=== PATIENT | female | born 1960 | race Caucasian/White ===

== ENCOUNTER 2017-03-05 13:02 | Observation (INO) | payer OTHER ==
[~2017-03-05] VITALS: Ht 172.7 cm; Wt 98.7 kg
[2017-03-05] MEDS ORDERED: CHLO4 PO (13:27)
[2017-03-05] MEDS ORDERED: IBUP600 PO (13:28)
[2017-03-05] MEDS ORDERED: ACET325 PO (13:29)
[2017-03-05 13:44] LABS: BASOPHILS ABSOLUTE AUTO 0.02 K/mm3 (0.00-0.23); BASOPHILS PERCENT AUTO 0 % (0-2); EOSINOPHILS PERCENT AUTO 4 % (0-6); Hematocrit 43.3 % (33.0-51.0); Hemoglobin 14.8 g/dL (11.5-16.0); IMMATURE GRAN ABSOLUTE AUTO 0.01 K/mm3 (0.00-0.10); IMMATURE GRAN PERCENT AUTO 0 % (0-1); LYMPHOCYTES ABSOLUTE AUTO 2.75 K/mm3 (0.84-5.20); LYMPHOCYTES PERCENT AUTO 39 % (21-46); MONOCYTES ABSOLUTE AUTO 0.84 K/mm3 (0.16-1.47); MONOCYTES PERCENT AUTO 12 % (4-13); Mean Corpuscular HGB Conc 34.2 g/dL (31.5-36.5); Mean Corpuscular Volume 94 fL (80-100); Mean Platelet Volume 9.6 fL (9.1-12.4); NEUTROPHILS ABSOLUTE AUTO 3.12 K/mm3 (1.96-9.15); NEUTROPHILS PERCENT AUTO 44 % (41-73); Platelet Count 202 K/mm3 (150-400); RDW Coefficient Variation 12.8 % (11.7-14.2); RDW Standard Deviation 43.9 fL (35.1-46.3); Red Blood Cell Count 4.62 M/mm3 (3.80-5.20); White Blood Cell Count 7.04 K/mm3 (4.00-11.30)
[2017-03-05 14:08] LABS: Alanine Aminotransfer (ALT/SGP 47 U/L (12-78); Albumin, Blood 3.7 g/dL (3.4-5.0); Albumin/Globulin Ratio 1.2 (0.8-1.8); Alk Phos 80 U/L (50-136); Anion Gap 6 mmol/L (6-16); Aspartate Aminotrans (AST/SGOT 25 U/L (12-37); Bilirubin, Total 0.2 mg/dL (0.1-1.0); Blood Urea Nitrogen 13 mg/dL (8-24); Bun/Creatinine Ratio 18.4 (12.0-20.0); CO2, Blood 29 mmol/L (21-32); Calcium, Blood 8.8 mg/dL (8.5-10.1); Chloride, Blood 107 mmol/L (98-108); Creatinine, Blood 0.71 mg/dL (0.40-1.00); Ethanol (Alcohol), Blood, Med <3 mg/dL; Globulin, Blood 3.1 g/dL (2.2-4.0); Glomerular Filtration Rate >60 (60-); Glucose, Blood 119 mg/dL (70-99); Potassium, Blood 3.7 mmol/L (3.5-5.5); Sodium, Blood 142 mmol/L (136-145); Total Protein, Blood 6.8 g/dL (6.4-8.2)
[2017-03-05 14:11] LABS: International Normalized Ratio 0.97; Prothrombin Time Results 10.1 Sec (9.7-11.5)
[2017-03-05 18:48] LABS: U Amphetamine Screen Not Detected; U Barbituate Screen Not Detected; U Benzodiazapine Screen Not Detected; U Buprenorphine Screen Not Detected; U Cannabinoids Screen Not Detected; U Cocaine Screen Not Detected; U Methadone Screen Not Detected; U Methamphetamine Screen Not Detected; U Opiates Screen Not Detected; U Oxycodone Screen Not Detected; U Phencyclidine Screen Not Detected; U Propoxyphene Screen Not Detected
[2017-03-06 05:38] LABS: Hematocrit 41.9 % (33.0-51.0); Mean Corpuscular HGB 31.5 pg (26.0-34.0); Mean Corpuscular HGB Conc 33.4 g/dL (31.5-36.5); Mean Corpuscular Volume 94 fL (80-100); Mean Platelet Volume 9.7 fL (9.1-12.4); Platelet Count 182 K/mm3 (150-400); RDW Coefficient Variation 12.8 % (11.7-14.2); RDW Standard Deviation 43.8 fL (35.1-46.3); Red Blood Cell Count 4.45 M/mm3 (3.80-5.20); White Blood Cell Count 6.36 K/mm3 (4.00-11.30)
[2017-03-06 06:07] LABS: Anion Gap 6 mmol/L (6-16); Blood Urea Nitrogen 16 mg/dL (8-24); CO2, Blood 28 mmol/L (21-32); Calcium, Blood 8.7 mg/dL (8.5-10.1); Chloride, Blood 107 mmol/L (98-108); Cholesterol 213 mg/dL (50-200); Creatinine, Blood 0.64 mg/dL (0.40-1.00); Glomerular Filtration Rate >60 (60-); Glucose, Blood 102 mg/dL (70-99); Potassium, Blood 3.9 mmol/L (3.5-5.5); Sodium, Blood 141 mmol/L (136-145); Triglycerides 254 mg/dL (30-160); Very Low Density Lipoprot Chol 50 mg/dL (6-32)
[2017-03-06 06:08] LABS: CHOL/HDL RATIO 5.1; HDL Cholesterol 42 mg/dL (>39); LDL/HDL RATIO 2.9; Low Density Lipoprotein Chol 120 mg/dL (0-110)
[2017-03-07] MEDS ORDERED: Aspirin EC81 MG PO (09:00)
[2017-03-07] MEDS ORDERED: SIMV40 PO (09:05)
[2017-03-07] MEDS ORDERED: Nicotine Patch1 EAC5 TOP (09:05)
[2017-03-07] MEDS ORDERED: CLOP75 PO (09:06)
[2017-08-02] MEDS ORDERED: MECL12.5 PO (10:51)
[2017-08-02] MEDS ORDERED: CITA20 PO (10:51)
[2017-08-02] MEDS ORDERED: MELA3 (10:51)
== END 2017-03-07 10:33 | disposition home or self-care (01) ==
LOC: ER 13:02 → MEDS 18:03 → ENPENDDIS 03-07 08:30 → MEDS 03-07 10:33
PROVIDERS: Internal Medicine; Physician Assistant
DX: G45.9 Transient cerebral ischemic attack, unspecified (principal); E11.9 Type 2 diabetes mellitus without complications; I10 Essential (primary) hypertension; F17.210 Nicotine dependence, cigarettes, uncomplicated; Z90.89 Acquired absence of other organs; Z90.49 Acquired absence of other specified parts of digestive tract; Z88.8 Allergy status to other drugs, medicaments and biological substances; Z98.890 Other specified postprocedural states
CPT/HCPCS: 36415; 70450; 70496; 70498; 70551; 80048; 80053; 80061; 82947; 83036; 85025; 85027; 85610; 93005; 93010; 93306; 96125; 97110; 97161; 97165; 99285; 99406; G0378; G0480; G8978; G8979; G8980; G8987; G8988; G8989; G9174; G9175; G9176; Q9967

== ENCOUNTER → 2017-07-11 | Outpatient (CLI) | payer OTHER ==
[~2017-07-11] MED LIST: ACET325 PO; Aspirin EC81 MG PO; CHLO4 PO; CLOP75 PO; IBUP600 PO; Nicotine Patch1 EAC5 TOP; SIMV40 PO
== END ==
LOC: LAB UCHC 11:40 → LAB SHORT 11:40
DX: K52.9 Noninfective gastroenteritis and colitis, unspecified (principal)
CPT/HCPCS: 87015; 87045; 87046; 87177; 87205; 87209; 87338; 87899

== ENCOUNTER 2017-08-05 07:48 | Day surgery (SDC) | payer OTHER ==
[~2017-08-05] VITALS: Ht 170.2 cm; Wt 100.8 kg
[~2017-08-05 07:48] MED LIST changes: +CITA20 PO; +MECL12.5 PO; +MELA3
== END 2017-08-05 22:38 | disposition home or self-care (01) ==
LOC: MHTC 07:48
PROC: B246ZZ4 Ultrasonography of Right and Left Heart, Transesophageal (ICD-10-PCS; principal; 2017-08-05)
DX: G45.9 Transient cerebral ischemic attack, unspecified (principal); Z86.73 Personal history of transient ischemic attack (TIA), and cerebral infarction without residual deficits; E78.5 Hyperlipidemia, unspecified; Z87.891 Personal history of nicotine dependence; E66.9 Obesity, unspecified
CPT/HCPCS: 93312; 93325; J7120

== ENCOUNTER 2018-09-21 11:44 | Emergency (ER) | payer OTHER ==
[~2018-09-21] VITALS: Ht 172.7 cm; Wt 95.2 kg
[2018-09-21] MEDS ORDERED: Prinivil10 MG (12:07)
== END 2018-09-21 13:50 | disposition home or self-care (01) ==
LOC: ER 11:44
DX: I83.92 Asymptomatic varicose veins of left lower extremity (principal); Z88.8 Allergy status to other drugs, medicaments and biological substances; Z79.899 Other long term (current) drug therapy; Z87.891 Personal history of nicotine dependence
CPT/HCPCS: 82947; 99283

== ENCOUNTER 2022-03-25 14:35 | Emergency (ER) | payer OTHER ==
[~2022-03-25] VITALS: Ht 170.2 cm; Wt 68.0 kg
[~2022-03-25 14:35] MED LIST changes: +Prinivil10 MG
[2022-03-25 15:36] LABS: BASOPHILS ABSOLUTE AUTO 0.02 K/mm3 (0.00-0.23); BASOPHILS PERCENT AUTO 0 % (0-2); EOSINOPHILS ABSOLUTE AUTO 0.08 K/mm3 (0.00-0.68); EOSINOPHILS PERCENT AUTO 1 % (0-6); Hematocrit 42.8 % (33.0-51.0); Hemoglobin 14.7 g/dL (11.5-16.0); IMMATURE GRAN ABSOLUTE AUTO 0.03 K/mm3 (0.00-0.10); IMMATURE GRAN PERCENT AUTO 0 % (0-1); LYMPHOCYTES ABSOLUTE AUTO 2.08 K/mm3 (0.84-5.20); LYMPHOCYTES PERCENT AUTO 25 % (21-46); MONOCYTES ABSOLUTE AUTO 0.78 K/mm3 (0.16-1.47); MONOCYTES PERCENT AUTO 9 % (4-13); Mean Corpuscular HGB Conc 34.3 g/dL (31.5-36.5); Mean Corpuscular Volume 93 fL (80-100); Mean Platelet Volume 9.3 fL (9.1-12.4); NEUTROPHILS ABSOLUTE AUTO 5.28 K/mm3 (1.96-9.15); NEUTROPHILS PERCENT AUTO 64 % (41-73); Platelet Count 219 K/mm3 (150-400); RDW Coefficient Variation 12.1 % (11.7-14.2); RDW Standard Deviation 41.4 fL (35.1-46.3); White Blood Cell Count 8.27 K/mm3 (4.00-11.30)
[2022-03-25 15:58] LABS: Albumin, Blood 3.8 g/dL (3.4-5.0); Albumin/Globulin Ratio 1.1 (0.8-1.8); Bilirubin, Total 0.2 mg/dL (0.1-1.0); Bun/Creatinine Ratio 13.3 (12.0-20.0); Calcium, Blood 9.3 mg/dL (8.5-10.1); Creatinine, Blood 0.83 mg/dL (0.40-1.00); Globulin, Blood 3.4 g/dL (2.2-4.0); Potassium, Blood 3.8 mmol/L (3.5-5.5); Total Protein, Blood 7.2 g/dL (6.4-8.2)
== END 2022-03-25 18:42 | disposition home or self-care (01) ==
LOC: ER 14:35
PROVIDERS: Student in an Organized Health Care Education/Training Program
DX: R51.9 Headache, unspecified (principal); R47.9 Unspecified speech disturbances; Z79.899 Other long term (current) drug therapy; Z88.8 Allergy status to other drugs, medicaments and biological substances; Z87.891 Personal history of nicotine dependence
CPT/HCPCS: 36415; 70450; 70551; 71046; 80053; 82947; 85025

== ENCOUNTER → 2022-11-19 | Outpatient (CLI) | payer OTHER ==
[2022-11-22 07:12] LABS: COTININE Negative ng/mL (Cutoff=300)
== END | disposition home or self-care (01) ==
LOC: LAB 13:49 → LAB SHORT 13:49
PROVIDERS: Family Medicine
DX: F17.200 Nicotine dependence, unspecified, uncomplicated (principal)

== ENCOUNTER → 2023-08-28 | Outpatient (CLI) | payer OTHER ==
[2023-08-28 15:55] LABS: Phosphorus, Urine 72.8 mg/dL (20.0-60.0); Urine Magnesium 6.5 mg/dL
[2023-08-28 15:56] LABS: Microalbumin, Urine Quant. 8.16 mg/L (0.000-20.000); Uric Acid, Urine 36.3 mg/dL (7.5-49.5)
[2023-08-28 16:08] LABS: Calcium, Urine 19.8 mg/dL (< 17.5); Calcium, Urine Calculation 217.8 mg/24hrs (42.0-353.0)
[2023-09-02 14:45] LABS: CALCIUM, URINE - PER 24H 220 mg/d (100-250); CHLORIDE, URINE - PER 24H 139 mmol/d (140-250); CHLORIDE, URINE - PER VOLUME 126 mmol/L; CITRIC ACID, URINE - PER 24H 460 mg/d (320-1240); CITRIC ACID,URINE - PER VOLUME 418 mg/L; CREATININE, URINE - PER 24H 1155 mg/d (500-1400); CREATININE, URINE - PER VOLUME 105 mg/dL; HOURS COLLECTED 24 hr; MAGNESIUM, URINE PER 24H 66 mg/d (12-199); OXALATE, URINE - PER 24H 23 mg/d (13-40); OXALATE, URINE - PER VOLUME 21 mg/L; PH, URINE 5.61 (5.00-7.50); PHOSPHORUS, URINE - PER 24H 770 mg/d (400-1300); PHOSPHORUS, URINE - PER VOLUME 70 mg/dL; POTASSIUM, URINE - PER 24H 41 mmol/d (25-125); POTASSIUM, URINE - PER VOLUME 37 mmol/L; SODIUM, URINE - PER 24H 135 mmol/d (51-286); SODIUM, URINE - PER VOLUME 123 mmol/L; SULFATE, URINE - PER 24H < 5 mmol/d (6-30); SULFATE, URINE - PER VOLUME <5 mmol/L; TOTAL VOLUME 1100 mL; URIC ACID, URINE - PER 24H 371 mg/d (250-750); URIC ACID, URINE - PER VOLUME 33.7 mg/dL; URINE SUPERSATURATION INTERP Abnormal; URINE SUPERSATURATION, CAHPO4 1.88
== END | disposition home or self-care (01) ==
LOC: LAB 09:20 → LAB SHORT 09:20
PROVIDERS: Nurse Practitioner Family
DX: R10.9 Unspecified abdominal pain (principal)
CPT/HCPCS: 81003; 81050; 82043; 82131; 82140; 82150; 82340; 82436; 82507; 82570; 83735; 83935; 83945; 84105; 84133; 84300; 84392; 84540; 84560

== ENCOUNTER → 2023-11-06 | Outpatient (CLI) | payer OTHER ==
[2023-11-06 20:32] LABS: Creatinine Urine 77.1 mg/dL (27.00-270.00); Microalbumin, Urine Quant. 5.19 mg/L (0.000-20.000); Protein, Urine Quantitative 10.5 mg/dL (0.0-11.9)
== END | disposition home or self-care (01) ==
LOC: LAB 17:26 → LAB SHORT 17:26 → LAB FUT 10-31 11:25
PROVIDERS: Internal Medicine Nephrology
DX: N18.1 Chronic kidney disease, stage 1 (principal); D63.1 Anemia in chronic kidney disease; N25.81 Secondary hyperparathyroidism of renal origin; E55.9 Vitamin D deficiency, unspecified; E78.00 Pure hypercholesterolemia, unspecified; D51.8 Other vitamin B12 deficiency anemias; D52.8 Other folate deficiency anemias; D50.9 Iron deficiency anemia, unspecified; R76.9 Abnormal immunological finding in serum, unspecified; R94.5 Abnormal results of liver function studies; R94.6 Abnormal results of thyroid function studies
CPT/HCPCS: 81050; 82043; 82570; 84156

== ENCOUNTER → 2024-05-12 | Outpatient (CLI) | payer OTHER ==
[2024-05-15 07:09] LABS: C. TRACHOMATIS BY TMA,THINPREP Negative (Negative); N. GONORRHOEAE BY TMA,THINPREP Negative (Negative); SPECIMEN SOURCE Cervical
[2024-05-21 11:20] LABS: HPV HIGH RISK BY TMA Not Detected; HPV SOURCE Cervical
== END ==
LOC: LAB SHORT 18:25 → LAB 18:25
PROVIDERS: Nurse Practitioner Family
DX: Z01.419 Encounter for gynecological examination (general) (routine) without abnormal findings (principal)
CPT/HCPCS: 87491; 87591; 87624; G0123

== ENCOUNTER → 2024-07-21 | Outpatient (CLI) | payer OTHER ==
[2024-07-21 16:35] LABS: BASOPHILS ABSOLUTE AUTO 0.02 K/mm3 (0.00-0.23); BASOPHILS PERCENT AUTO 0 % (0-2); EOSINOPHILS ABSOLUTE AUTO 0.03 K/mm3 (0.00-0.68); EOSINOPHILS PERCENT AUTO 1 % (0-6); Hemoglobin 13.8 g/dL (11.5-16.0); IMMATURE GRAN ABSOLUTE AUTO 0.01 K/mm3 (0.00-0.10); IMMATURE GRAN PERCENT AUTO 0 % (0-1); LYMPHOCYTES ABSOLUTE AUTO 1.88 K/mm3 (0.84-5.20); LYMPHOCYTES PERCENT AUTO 34 % (21-46); MONOCYTES ABSOLUTE AUTO 0.67 K/mm3 (0.16-1.47); MONOCYTES PERCENT AUTO 12 % (4-13); Mean Corpuscular HGB 30.5 pg (26.0-34.0); Mean Corpuscular HGB Conc 32.9 g/dL (31.5-36.5); Mean Corpuscular Volume 93 fL (80-100); Mean Platelet Volume 10.2 fL (9.1-12.4); NEUTROPHILS ABSOLUTE AUTO 2.85 K/mm3 (1.96-9.15); NEUTROPHILS PERCENT AUTO 52 % (41-73); Platelet Count 192 K/mm3 (150-400); RDW Coefficient Variation 12.6 % (11.7-14.2); RDW Standard Deviation 42.8 fL (35.1-46.3); Red Blood Cell Count 4.53 M/mm3 (3.80-5.20); White Blood Cell Count 5.46 K/mm3 (4.00-11.30)
[2024-07-21 20:35] LABS: Alanine Aminotransfer (ALT/SGP 31 U/L (12-78); Albumin/Globulin Ratio 1.1 (0.8-1.8); Alk Phos 102 U/L (50-136); Anion Gap 10 mmol/L (3-11); Aspartate Aminotrans (AST/SGOT 24 U/L (12-37); Bilirubin, Total 0.5 mg/dL (0.1-1.0); Blood Urea Nitrogen 12 mg/dL (8-24); CHOL/HDL RATIO 3.7; CO2, Blood 26 mmol/L (21-32); Calcium, Blood 9.3 mg/dL (8.5-10.1); Chloride, Blood 106 mmol/L (98-108); Cholesterol 195 mg/dL (50-200); Creatinine, Blood 0.71 mg/dL (0.40-1.00); Globulin, Blood 3.5 g/dL (2.2-4.0); Glomerular Filtration Rate 95 (60-); Glucose, Blood 94 mg/dL (70-99); HDL Cholesterol 53 mg/dL (>39); LDL/HDL RATIO 1.8; Low Density Lipoprotein Chol 93 mg/dL (0-110); Sodium, Blood 138 mmol/L (136-145); Total Protein, Blood 7.5 g/dL (6.4-8.2); Triglycerides 245 mg/dL (30-160); Very Low Density Lipoprot Chol 49 mg/dL (6-32)
[2024-07-23 22:48] LABS: DEAMIDATED GLIADIN PEPTIDE,IGA <0.72 FLU (0.00-4.99); TISSUE TRANSGLUTAMINAS TTG,IGA <1.02 FLU (0.00-4.99)
[2024-07-24 02:26] LABS: IMMUNOGLOBULIN A 128 mg/dL (68-408)
== END ==
LOC: LAB SHORT 15:13 → LAB 15:13
PROVIDERS: Family Medicine
DX: K52.9 Noninfective gastroenteritis and colitis, unspecified (principal); Z79.899 Other long term (current) drug therapy
CPT/HCPCS: 80053; 80061; 82306; 83036; 84443; 85025; 86258; 86364